=== PATIENT | male | born 1960 | race Caucasian/White ===

== ENCOUNTER 2017-03-07 12:59 | Inpatient (IN) | payer OTHER ==
[2017-03-07 14:54] VITALS: BMI 33.8
--- NOTE | 2017-03-07 15:12 | HP ---
CIWA Score - CIWA Score Nausea/Vomitin Muscle Tremors: 3 Anxiety: 3 Agitation: 3 Paroxysmal Sweats: 1-Minimal Palms Moist Orientation: 0-Oriented Tacttile Disturbances: 1-Very Mild Itch/Numbness Auditory Disturbances: 1-Very Mild Visual Disturbances: 0-None Headache: 2-Mild CIWA-Ar Total Score: 17 Admission ROS BHS - HPI Chief Complaint: I NEED HELP TO STOP USING XANAX AND MARIJUANA Allergies/Adverse Reactions: Allergies Allergy/AdvReac Type Severity Reaction Status Date / Time No Known Drug Allergies Allergy Verified 03/07/17 15:00 History of Present Illness: THIS 56 YEARS OLD MALE WITH XANAX AND MARIJUANA DEPENDENCE,SEEKING HELP TO STOP USING DRUGS,LAST TREATMENT AT [facility] 2011 OLD CVA WITH RIGHT SIDE HEMIPAREIS AT [facility] IN 2012,AMBULATION WITH CANE SINCE THEN HTN HYPERCHOLESTEROLEMIA TYPE 2 DM INSOMNIA - Ebola screening Have you traveled outside of the country in the last 21 days: No Have you had contact with anyone from an Ebola affected area: No Have you been sick,other than usual withdrawal symptoms: No Do you have a fever: No - Review of Systems Constitutional: Loss of Appetite, Malaise, Night Sweats, Changes in sleep, Weakness EENT: reports: Tearing, Nose Congestion Cardiac: reports: No Symptoms Reported GI: reports: Nausea, Vomiting, Abdominal cramping : reports: No Symptoms Reported Musculoskeletal: reports: Back Pain, Muscle Pain Integumentary: reports: Dryness Endocrine: reports: No Symptoms Reported Hematology: reports: No Symptoms Reported Psychiatric: reports: No Sypmtoms Reported, Judgement Intact, Mood/Affect Appropiate, Orientated x3, Anxious, Depressed, other (INSOMNIA) Patient History - Patient Medical History Hx Anemia: No Hx Asthma: No Hx Chronic Obstructive Pulmonary Disease (COPD): No Hx Cancer: No Hx Cardiac Disorders: No Hx Congestive Heart Failure: No Hx Hypertension: Yes Hx Hypercholesterolemia: Yes Hx Pacemaker: No HX Cerebrovascular Accident: Yes (Apr 01, 2013, R hemiparesis) Hx Seizures: No Hx Dementia: No Hx Diabetes: Yes (BORDERLINE NOT ON ANY MEDS) Hx Gastrointestinal Disorders: No Hx Liver Disease: No Hx Genitourinary Disorders: No Hx Sexually Transmitted Disorders: No Hx Renal Disease (ESRD): No Hx Thyroid Disease: No Hx Human Immunodeficiency Virus (HIV): No (NEVER BEEN TESTED,DID NOT WANT TO HAVE A TEST) Hx Hepatitis C: No Hx Depression: No Hx Suicide Attempt: No Hx Bipolar Disorder: Yes (on medication) Hx Schizophrenia: No Other Medical History: NO SUICIDAL,NO HOMICIDAL - Patient Surgical History Past Surgical History: Yes Hx Neurologic Surgery: No Hx Cataract Extraction: No Hx Cardiac Surgery: No Hx Lung Surgery: No Hx Breast Surgery: No Hx Breast Biopsy: No Hx Abdominal Surgery: No Hx Appendectomy: No Hx Cholecystectomy: Yes Hx Genitourinary Surgery: Yes (shockwave lithotripsy LEFT) Hx Section: No Hx Orthopedic Surgery: No Hx Hysterectomy: No Other Surgical History: removsal of kidney stones Anesthesia Reaction: No - PPD History Previous Implant?: Yes Documented Results: Negative w/o proof Implanted On Prior [facility] Admission?: Yes Date: 03/22/12 PPD to be Administered?: Yes - Smoking Cessation Smoking history: Former smoker Have you smoked in the past 12 months: No If you are a former smoker, when did you quit?: 04/11/2013 Cigars Per Day: 0 Initiated information on smoking cessation: Yes 'Breaking Loose' booklet given: 03/07/17 - Substance & Tx. History Hx Alcohol Use: No Hx Substance Use: Yes Substance Use Type: None, Marijuana, Tranquilizers - Substances Abused Alprazolam (Xanax) Route: Oral Frequency: Daily Amount used: 6 MGS Age of first use: 52 Date of Last Use: 03/06/17 Marijuana/Hashish Route: Smoking Frequency: 3-6 times per week Amount used: 10$ Age of first use: 33 Date of Last Use: 03/06/17 Family Disease History - Family Disease History Family History: Denies Admission Physical Exam [facility] - Vital Signs Vital Signs: Vital Signs - 24 hr 03/07/17 14:52 Temperature 97.6 F Pulse Rate 94 H Respiratory 20 Rate Blood Pressure 142/94 - Physical General Appearance: Yes: Moderate Distress, Tremorous, Irritable, Sweating, Anxious HEENTM: Yes: Normal ENT Inspection, ALIVIA, Pharynx Normal Respiratory: Yes: Lungs Clear, Normal Breath Sounds, No Respiratory Distress Neck: Yes: Within Normal Limits, Supple, Trachea in good position Breast: Yes: Breast Exam Deferred Cardiology: Yes: Within Normal Limits, Regular Rhythm, Regular Rate, S1, S2 Abdominal: Yes: Within Normal Limits, Normal Bowel Sounds, Non Tender, Flat, Soft Genitourinary: Yes: Within Normal Limits Musculoskeletal: Yes: Back pain, Muscle Pain Extremities: Yes: Tremors 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 NML intact (RIGHT HEMIPARESIS POST CVA), Fully Oriented, Alert Integumentary: Yes: Dry Lymphatic: Yes: Within Normal Limits - Diagnostic (1) Uncomplicated sedative, hypnotic or anxiolytic withdrawal Current Visit: Yes Status: Acute (2) Essential hypertension Current Visit: No Status: Active (3) Hypercholesterolemia Current Visit: No Status: Active (4) Bipolar disorder Current Visit: No Status: Active (5) DM Diabetes mellitus type 2 Current Visit: No Status: Active (6) Hemiparesis due to old cerebrovascular accident Current Visit: Yes Status: Acute (7) Use of cane as ambulatory aid Current Visit: Yes Status: Acute Cleared for Admission [facility] - Detox or Rehab [facility] Level of Care: Medically Managed Detox Regimen/Protocol: Librium [facility] Breath Alcohol Content Breath Alcohol Content: 0 Urine Drug Screen - Results Drug Screen Negative: No Urine Drug Screen Results: THC-Marijuana, BZO-Benzodiazepines, TCA-Tricyclic Antidepress
[2017-03-07] MEDS ORDERED: diazePAM 5 MG TABLET PO ONE (15:59)
[2017-03-07] MEDS ORDERED: MENTHOL/PHENOL 1 EACH UD MM PRN (15:59)
[2017-03-07] MEDS ORDERED: MAGNESIUM HYDROX 2400MG/30ML ORAL SUSPENSION 30 ML CUP PO PRN (15:59)
[2017-03-07] MEDS ORDERED: P-EPHED 60MG/TRIPROLIDI 2.5MG TABLET PO PRN (15:59)
[2017-03-07] MEDS ORDERED: MAG HYDROX/AL HYDROX/SIMETH 30 ML UNIT-DOSE CUP PO PRN (15:59)
[2017-03-07] MEDS ORDERED: MAGNESIUM CITRATE 300 ML BOTTLE PO PRN (15:59)
[2017-03-07] MEDS ORDERED: guaiFENesin/D-METHORPHAN HB 10 ML UNIT-DOSE CUPS PO PRN (15:59)
[2017-03-07] MEDS ORDERED: LOPERAMIDE HCL 2 MG CAPSULE PO PRN (15:59)
[2017-03-07] MEDS: ACETAMINOPHEN 325 MG TABLET (FP) PO PRN (17:42)
[2017-03-07] MEDS: diazePAM 5 MG TABLET PO SCH ×2 (17:46→22:05)
[2017-03-07] MEDS: IBUPROFEN 400 MG TABLET (FP) PO PRN (19:13)
[2017-03-07 19:14] LABS: URINE APPEARANCE CLEAR; URINE BILIRUBIN NEGATIVE (NEGATIVE); URINE BLOOD NEGATIVE (NEGATIVE); URINE COLOR YELLOW; URINE GLUCOSE (UA) NEGATIVE (NEGATIVE); URINE KETONE NEGATIVE (NEGATIVE); URINE NITRITE NEGATIVE (NEGATIVE); URINE PROTEIN NEGATIVE (NEGATIVE); URINE UROBILINOGEN NEGATIVE mg/dL (0.2-1.0)
[2017-03-07 21:10] LABS: URINE LEUK ESTERASE Negative (NEGATIVE)
[2017-03-07] MEDS: THIAMINE HCL 100 MG TABLET (FP) PO SCH (22:05)
[2017-03-07] MEDS: ATORVASTATIN CA 40 MG TABLET (FP) PO SCH (22:05)
[2017-03-08] MEDS: diazePAM 5 MG TABLET PO PRN ×3 (00:48→16:38)
[2017-03-08] MEDS: hydrOXYzine PAMOATE 25 MG CAPSULE (FP) PO PRN (00:48)
[2017-03-08] MEDS: diazePAM 5 MG TABLET PO SCH ×3 (05:21→22:05)
--- NOTE | 2017-03-08 07:15 | CONSULT ---
[facility] Psychiatric Consult - Data Date of interview: 03/08/17 Identifying data: Mr Haynes is a 56 years old [place] male, father of 7 children, unemployed supported by family and domiciled living with Substance Abuse History: Reports history of xanax and marijuana use, He started using marijuana at age 33 and xanax at age 52, consumes $10 worth of marijuana 3-6 times weekly and 6 mg of xanax daily. Last smoked marijuana and used xanax on 03/06/17 Medical History: Significant for hypertension, hyperlipidemia, type 2 diabetes mellitusand a history of old cva with right hemiparesy and and shockwave lithotripsy. Psychiatric History: Reports that he started receiving psychiatric treatment for depression 4 years ago when he attended [facility]. Claims that he was prescribed Trazadone at the time. Then he was prescibed Pamelor up to 75 mg po BID by his neurologist whom he stopped seeing a year ago. So he stopped taking medication a year ago. At present, he is prescribed Trazadone 100 mg po HS for insomnia and recently Prozac 25 mg po daily for depression by his primary physician. Claims that he does not take Prozac because of bad things they say about it on TV. Denies previous psychiatric hospitalization or suicidal ideations. At present, reports feeling depressed and sleeping poorly Physical/Sexual Abuse/Trauma History: Denies history of verbal, physical or sexual abuse. Additional Comment: Denies criminal history Mental Status Exam - Mental Status Exam Alert and Oriented to: Time, Place, Person Cognitive Function: Fair Patient Appearance: Well Groomed Mood: Depressed, Euthymic Affect: Constricted Patient Behavior: Cooperative Speech Pattern: Clear Voice Loudness: Normal Thought Process: Intact, Goal Oriented Thought Disorder: Not Present Hallucinations: Denies Suicidal Ideation: Denies Homicidal Ideation: Denies Insight/Judgement: Fair Sleep: Poorly Appetite: Fair Muscle strength/Tone: Normal Gait/Station: Normal Psychiatric Findings - Problem List ([place] 1, 2,3) (1) Sedative hypnotic or anxiolytic dependence Current Visit: Yes Status: Acute (2) Cannabis dependence Current Visit: Yes Status: Acute (3) Depressive disorder Current Visit: Yes Status: Acute (4) Substance induced mood disorder Current Visit: Yes Status: Acute (5) Substance-induced sleep disorder Current Visit: Yes Status: Acute (6) Hemiparesis due to old cerebrovascular accident Current Visit: Yes Status: Acute (7) Use of cane as ambulatory aid Current Visit: Yes Status: Acute (8) DM Diabetes mellitus type 2 Current Visit: No Status: Active (9) Essential hypertension Current Visit: No Status: Active (10) Hypercholesterolemia Current Visit: No Status: Active - Initial Treatment Plan Initial Treatment Plan: 1) Start Benadryl 50 mg po HS prn for insomnia and Doxepin 50 mg po HS. Benefits vs Risks of medication discussed with patient and he agreed to try it. 2) Monitor progress
[2017-03-08] MEDS: ASPIRIN 81 MG CHEWABLE TABLETS PO SCH (10:05)
[2017-03-08] MEDS: PRENATAL VITAMINS W/ FOLIC ACID TABLET (FP) PO SCH (10:05)
[2017-03-08] MEDS: NEBIVOLOL 10 MG TABLET (FP) PO SCH (10:05)
[2017-03-08] MEDS: IBUPROFEN 400 MG TABLET (FP) PO PRN (10:07)
[2017-03-08 11:25] LABS: MCH 27.9 pg (25.7-33.7); MCHC 32.7 g/dl (32.0-35.9); MEAN CELL VOLUME 85.5 fl (80-96); MEAN PLT VOLUME 10.2 fl (7.5-11.1); PLATELET COUNT 241 K/MM3 (134-434); RDW 14.6 % (11.9-15.9); WHITE BLOOD COUNT 6.2 K/mm3 (4.0-10.0)
[2017-03-08 11:38] LABS: ANION GAP 11 (8-16); CALCIUM 8.8 mg/dL (8.5-10.1); CO2 28 mmol/L (21-32); CREATININE 0.8 mg/dL (0.7-1.3); GLUCOSE,RANDOM 120 mg/dL (74-106); SGOT/AST 13 U/L (15-37); SGPT/ALT 20 U/L (12-78)
[2017-03-08 11:40] LABS: ALK PHOS 83 U/L (45-117); BILIRUBIN,TOTAL 0.7 mg/dL (0.2-1.0); TOT PROT 7.7 g/dl (6.4-8.2)
[2017-03-08] MEDS ORDERED: FLU VACCINE QUAD 60 MCG/0.5 ML (MDV 17-18) IM ONE (12:00)
--- NOTE | 2017-03-08 12:21 | PN ---
[facility] CIWA - CIWA Score Nausea/Vomitin-Int. Nausea w/Dry Heave Muscle Tremors: 4-Moderate,w/Arms Extend Anxiety: 4-Mod. Anxious/Guarded Agitation: 4-Moderately Restless Paroxysmal Sweats: 3 Orientation: 0-Oriented Tacttile Disturbances: 1-Very Mild Itch/Numbness Auditory Disturbances: 0-None Visual Disturbances: 0-None Headache: 1-Very Mild CIWA-Ar Total Score: 21 S Progress Note (SOAP) Subjective: Sweating, tremor, nausea, chills, poor appetite, interrupted sleep. Patient requesting muscle relaxant due to spasm from right hemiparesis secondary to CVA ~ 3 years ago. Objective: 03/08/17 12:17 Last Vital Signs Temp Pulse Resp BP Pulse Ox 97.6 F 81 20 147/72 03/08/17 10:21 03/08/17 10:21 03/08/17 10:21 03/08/17 10:21 Laboratory Tests 03/07/17 03/07/17 03/08/17 15:34 18:55 05:24 WBC RBC Hgb Hct MCV MCH MCHC RDW Plt Count MPV Sodium Potassium Chloride Carbon Dioxide Anion Gap BUN Creatinine Creat Clearance w eGFR POC Glucometer 127 111 Random Glucose Calcium Total Bilirubin AST ALT Alkaline Phosphatase Total Protein Albumin Urine Color Yellow Urine Appearance Clear Urine pH 6.0 Ur Specific [place] 1.010 Urine Protein Negative Urine Glucose (UA) Negative Urine Ketones Negative Urine Blood Negative Urine Nitrite Negative Urine Bilirubin Negative Urine Urobilinogen Negative Ur Leukocyte Esterase Negative RPR Titer 03/08/17 03/08/17 03/08/17 07:40 07:40 07:40 WBC 6.2 RBC 5.40 D Hgb 15.1 D Hct 46.1 D MCV 85.5 MCH 27.9 MCHC 32.7 RDW 14.6 Plt Count 241 D MPV 10.2 D Sodium 139 Potassium 3.8 Chloride 100 Carbon Dioxide 28 Anion Gap 11 BUN 8 Creatinine 0.8 Creat Clearance w eGFR > 60 POC Glucometer Random Glucose 120 H Calcium 8.8 Total Bilirubin 0.7 D AST 13 L D ALT 20 Alkaline Phosphatase 83 Total Protein 7.7 Albumin 4.0 D Urine Color Urine Appearance Urine pH Ur Specific [place] Urine Protein Urine Glucose (UA) Urine Ketones Urine Blood Urine Nitrite Urine Bilirubin Urine Urobilinogen Ur Leukocyte Esterase RPR Titer Nonreactive Labs noted: serum glucose 120mg/dl Assessment: 03/08/17 12:19 Withdrawal symptoms Noted with hyperglycemia Plan: Continue detox Encouraged to drink lots of water (patient stated the water taste like chloride , nurses made aware) Flexeril 10mg PO TID PRN for muscle spasm Hyperglycemia secondary to prediabetes: start finger stick glucose ac meal with sliding scale insulin novolog coverage. Consider initiating oral antidiabetic medication if warranted.
[2017-03-08] MEDS: INSULIN SLIDING SCALE (NOVOLOG) 1 VIAL SQ SCH ×2 (13:20→16:29)
--- NOTE | 2017-03-08 15:40 | EKG ---
Test Reason : Blood Pressure : / mmHG Vent. Rate : 083 BPM Atrial Rate : 083 BPM P-R Int : 184 ms QRS Dur : 084 ms QT Int : 370 ms P-R-T Axes : 075 020 036 degrees QTc Int : 434 ms NORMAL SINUS RHYTHM POSSIBLE LEFT ATRIAL ENLARGEMENT BORDERLINE ECG WHEN COMPARED WITH ECG OF 24-JUN-2015 02:44, NONSPECIFIC T WAVE ABNORMALITY NO LONGER EVIDENT IN LATERAL LEADS BASELINE ARTIFACT REPEAT EKG IF CLINICALLY INDICATED Confirmed by MARCOS JURADO MD ([id number]) on 03/08/2017 3:39:49 PM Referred By: Confirmed By:MARCOS JURADO MD
[2017-03-08] MEDS: DOXEPIN HCL 50 MG CAPSULE PO SCH (22:04)
[2017-03-08] MEDS: THIAMINE HCL 100 MG TABLET (FP) PO SCH (22:04)
[2017-03-08] MEDS: ATORVASTATIN CA 40 MG TABLET (FP) PO SCH (22:05)
[2017-03-08] MEDS: CYCLOBENZAPRINE HCL 10 MG TABLET (FP) PO PRN (22:06)
[2017-03-08] MEDS: diphenhydrAMINE HCL 25 MG CAPSULE (FP) PO PRN (22:06)
[2017-03-09] MEDS: diazePAM 5 MG TABLET PO PRN ×2 (06:37→13:28)
[2017-03-09] MEDS: CYCLOBENZAPRINE HCL 10 MG TABLET (FP) PO PRN ×2 (06:38→22:07)
[2017-03-09] MEDS: INSULIN SLIDING SCALE (NOVOLOG) 1 VIAL SQ SCH ×3 (06:39→16:25)
--- NOTE | 2017-03-09 09:46 | PN ---
[facility] CIWA - CIWA Score Nausea/Vomitin-No Nausea/No Vomiting Muscle Tremors: 4-Moderate,w/Arms Extend Anxiety: 4-Mod. Anxious/Guarded Agitation: 4-Moderately Restless Paroxysmal Sweats: 1-Minimal Palms Moist Orientation: 0-Oriented Tacttile Disturbances: 3-Moderate Itch/Numb/Burn Auditory Disturbances: 0-None Visual Disturbances: 0-None Headache: 0-None Present CIWA-Ar Total Score: 16 S Progress Note (SOAP) Subjective: ANXIETY,TREMORS,SWEATS,INTERMITTENT SLEEP. Objective: 03/09/17 09:45 Vital Signs Temperature 96.8 F L 03/09/17 08:57 Pulse Rate 82 03/09/17 08:57 Respiratory Rate 18 03/09/17 08:57 Blood Pressure 140/78 03/09/17 08:57 O2 Sat by Pulse Oximetry (%) Laboratory Last Values WBC 6.2 K/mm3 (4.0-10.0) 03/08/17 07:40 RBC 5.40 M/mm3 (4.00-5.60) D 03/08/17 07:40 Hgb 15.1 GM/dL (11.7-16.9) D 03/08/17 07:40 Hct 46.1 % (35.4-49) D 03/08/17 07:40 MCV 85.5 fl (80-96) 03/08/17 07:40 MCH 27.9 pg (25.7-33.7) 03/08/17 07:40 MCHC 32.7 g/dl (32.0-35.9) 03/08/17 07:40 RDW 14.6 % (11.9-15.9) 03/08/17 07:40 Plt Count 241 K/MM3 (134-434) D 03/08/17 07:40 MPV 10.2 fl (7.5-11.1) D 03/08/17 07:40 Sodium 139 mmol/L (136-145) 03/08/17 07:40 Potassium 3.8 mmol/L (3.5-5.1) 03/08/17 07:40 Chloride 100 mmol/L (98-107) 03/08/17 07:40 Carbon Dioxide 28 mmol/L (21-32) 03/08/17 07:40 Anion Gap 11 (8-16) 03/08/17 07:40 BUN 8 mg/dL (7-18) 03/08/17 07:40 Creatinine 0.8 mg/dL (0.7-1.3) 03/08/17 07:40 Creat Clearance w eGFR > 60 (>60) 03/08/17 07:40 POC Glucometer 123 UNITS (80-120) 03/09/17 05:32 Random Glucose 120 mg/dL (74-106) H 03/08/17 07:40 Calcium 8.8 mg/dL (8.5-10.1) 03/08/17 07:40 Total Bilirubin 0.7 mg/dL (0.2-1.0) D 03/08/17 07:40 AST 13 U/L (15-37) L D 03/08/17 07:40 ALT 20 U/L (12-78) 03/08/17 07:40 Alkaline Phosphatase 83 U/L (45-117) 03/08/17 07:40 Total Protein 7.7 g/dl (6.4-8.2) 03/08/17 07:40 Albumin 4.0 g/dl (3.4-5.0) D 03/08/17 07:40 Urine Color Yellow 03/07/17 18:55 Urine Appearance Clear 03/07/17 18:55 Urine pH 6.0 (5.0-8.0) 03/07/17 18:55 Ur Specific [place] 1.010 (1.001-1.035) 03/07/17 18:55 Urine Protein Negative (NEGATIVE) 03/07/17 18:55 Urine Glucose (UA) Negative (NEGATIVE) 03/07/17 18:55 Urine Ketones Negative (NEGATIVE) 03/07/17 18:55 Urine Blood Negative (NEGATIVE) 03/07/17 18:55 Urine Nitrite Negative (NEGATIVE) 03/07/17 18:55 Urine Bilirubin Negative (NEGATIVE) 03/07/17 18:55 Urine Urobilinogen Negative mg/dL (0.2-1.0) 03/07/17 18:55 Ur Leukocyte Esterase Negative (NEGATIVE) 03/07/17 18:55 RPR Titer Nonreactive (NONREACTIVE) 03/08/17 07:40 Assessment: 03/09/17 09:45 WITHDRAWAL SX Plan: WITHDRAWAL SX
[2017-03-09] MEDS: ASPIRIN 81 MG CHEWABLE TABLETS PO SCH (10:01)
[2017-03-09] MEDS: diazePAM 5 MG TABLET PO SCH ×2 (10:01→22:06)
[2017-03-09] MEDS: NEBIVOLOL 10 MG TABLET (FP) PO SCH (10:02)
[2017-03-09] MEDS: PRENATAL VITAMINS W/ FOLIC ACID TABLET (FP) PO SCH (10:02)
[2017-03-09] MEDS: ACETAMINOPHEN 325 MG TABLET (FP) PO PRN ×2 (10:02→19:26)
[2017-03-09] MEDS: hydrOXYzine PAMOATE 25 MG CAPSULE (FP) PO PRN ×2 (17:07→23:53)
[2017-03-09] MEDS: THIAMINE HCL 100 MG TABLET (FP) PO SCH (22:06)
[2017-03-09] MEDS: DOXEPIN HCL 50 MG CAPSULE PO SCH (22:07)
[2017-03-09] MEDS: ATORVASTATIN CA 40 MG TABLET (FP) PO SCH (22:07)
[2017-03-09] MEDS: diphenhydrAMINE HCL 25 MG CAPSULE (FP) PO PRN (22:09)
[2017-03-10] MEDS: diazePAM 5 MG TABLET PO PRN (04:30)
[2017-03-10] MEDS: INSULIN SLIDING SCALE (NOVOLOG) 1 VIAL SQ SCH ×3 (06:31→16:35)
[2017-03-10] MEDS: hydrOXYzine PAMOATE 25 MG CAPSULE (FP) PO PRN ×2 (06:37→18:15)
[2017-03-10] MEDS: CYCLOBENZAPRINE HCL 10 MG TABLET (FP) PO PRN ×2 (06:37→22:13)
[2017-03-10] MEDS: ASPIRIN 81 MG CHEWABLE TABLETS PO SCH (10:13)
[2017-03-10] MEDS: PRENATAL VITAMINS W/ FOLIC ACID TABLET (FP) PO SCH (10:13)
[2017-03-10] MEDS: NEBIVOLOL 10 MG TABLET (FP) PO SCH (10:13)
[2017-03-10] MEDS: diazePAM 5 MG TABLET PO SCH ×2 (10:13→22:12)
--- NOTE | 2017-03-10 10:20 | PN ---
[facility] Progress Note (SOAP) Subjective: HIGH ANXIETY,IRRITABILITY,C/O SLEEPLESSNESS X 3 DAYS. WANTS SLEEPING AID BESIDES WHAT HE IS CURRENTLY TAKING. Objective: 03/10/17 10:19 Vital Signs 03/10/17 03/10/17 03/10/17 03:30 06:03 09:07 Temperature 97.3 F L 97.6 F Pulse Rate 73 91 H Respiratory 18 18 18 Rate Blood Pressure 131/76 158/86 Laboratory Last Values WBC 6.2 K/mm3 (4.0-10.0) 03/08/17 07:40 RBC 5.40 M/mm3 (4.00-5.60) D 03/08/17 07:40 Hgb 15.1 GM/dL (11.7-16.9) D 03/08/17 07:40 Hct 46.1 % (35.4-49) D 03/08/17 07:40 MCV 85.5 fl (80-96) 03/08/17 07:40 MCH 27.9 pg (25.7-33.7) 03/08/17 07:40 MCHC 32.7 g/dl (32.0-35.9) 03/08/17 07:40 RDW 14.6 % (11.9-15.9) 03/08/17 07:40 Plt Count 241 K/MM3 (134-434) D 03/08/17 07:40 MPV 10.2 fl (7.5-11.1) D 03/08/17 07:40 Sodium 139 mmol/L (136-145) 03/08/17 07:40 Potassium 3.8 mmol/L (3.5-5.1) 03/08/17 07:40 Chloride 100 mmol/L (98-107) 03/08/17 07:40 Carbon Dioxide 28 mmol/L (21-32) 03/08/17 07:40 Anion Gap 11 (8-16) 03/08/17 07:40 BUN 8 mg/dL (7-18) 03/08/17 07:40 Creatinine 0.8 mg/dL (0.7-1.3) 03/08/17 07:40 Creat Clearance w eGFR > 60 (>60) 03/08/17 07:40 POC Glucometer 121 UNITS (80-120) 03/10/17 04:32 Random Glucose 120 mg/dL (74-106) H 03/08/17 07:40 Calcium 8.8 mg/dL (8.5-10.1) 03/08/17 07:40 Total Bilirubin 0.7 mg/dL (0.2-1.0) D 03/08/17 07:40 AST 13 U/L (15-37) L D 03/08/17 07:40 ALT 20 U/L (12-78) 03/08/17 07:40 Alkaline Phosphatase 83 U/L (45-117) 03/08/17 07:40 Total Protein 7.7 g/dl (6.4-8.2) 03/08/17 07:40 Albumin 4.0 g/dl (3.4-5.0) D 03/08/17 07:40 Urine Color Yellow 03/07/17 18:55 Urine Appearance Clear 03/07/17 18:55 Urine pH 6.0 (5.0-8.0) 03/07/17 18:55 Ur Specific [place] 1.010 (1.001-1.035) 03/07/17 18:55 Urine Protein Negative (NEGATIVE) 03/07/17 18:55 Urine Glucose (UA) Negative (NEGATIVE) 03/07/17 18:55 Urine Ketones Negative (NEGATIVE) 03/07/17 18:55 Urine Blood Negative (NEGATIVE) 03/07/17 18:55 Urine Nitrite Negative (NEGATIVE) 03/07/17 18:55 Urine Bilirubin Negative (NEGATIVE) 03/07/17 18:55 Urine Urobilinogen Negative mg/dL (0.2-1.0) 03/07/17 18:55 Ur Leukocyte Esterase Negative (NEGATIVE) 03/07/17 18:55 RPR Titer Nonreactive (NONREACTIVE) 03/08/17 07:40 Assessment: 03/10/17 10:19 WITHDRAWAL SX Plan: CONTINUE DETOX PSYCH RE-EVALUATION RE:INSOMNIA.
[2017-03-10] MEDS: IBUPROFEN 400 MG TABLET (FP) PO PRN (11:32)
--- NOTE | 2017-03-10 11:51 | PN ---
Psychiatric Progress Note Vital Signs: Vital Signs Period Temp Pulse Resp BP Sys/Arita Pulse Ox Last 24 Hr 97.3 F-98.4 F 70-91 18-18 131-158/76-86 Date of Session: 03/10/17 Chief Complaint:: " I want ambien at night." HPI: Day 4 of detoxification treatment for xanax and marihuana dependence.Uneventful hospital course except for recurrent complaints of insomnia + requests for benzodiazepines or zolpidem. ROS: Patient is ambulatory (with cane).Always visible in open areas of unit.Alert and fully oriented. Current Medications: Active Medications Generic Name Dose Route Start Last Admin Trade Name Freq PRN Reason Stop Dose Admin Acetaminophen 650 mg 03/07/17 15:59 03/09/17 19:26 Tylenol - PO 650 mg Q4H PRN Administration FEVER OR PAIN Al Hydroxide/Mg Hydroxide 30 ml 03/07/17 15:59 03/07/17 19:14 Mylanta Oral Suspension - PO 30 ml Q6H PRN Administration DYSPEPSIA Aspirin 81 mg 03/08/17 10:00 03/10/17 10:13 Asa - PO 81 mg DAILY STEFANIA Administration Atorvastatin Calcium 40 mg 03/07/17 22:00 03/09/17 22:07 Lipitor - PO 40 mg HS STEFANIA Administration Cyclobenzaprine HCl 10 mg 03/08/17 12:11 03/10/17 06:37 Flexeril - PO 10 mg TID PRN Administration MUSCLE SPASMS Diazepam 5 mg 03/09/17 10:00 03/10/17 10:13 Valium - PO 03/10/17 22:01 5 mg BID STEFANIA Administration Diazepam 5 mg 03/11/17 10:00 Valium - PO 03/11/17 10:01 DAILY STEFANIA Diazepam 10 mg 03/07/17 15:59 03/10/17 04:30 Valium - PO 03/10/17 15:58 10 mg Q4H PRN Administration WITHDRAWAL(CONT SUBST) Diphenhydramine HCl 50 mg 03/08/17 09:45 03/09/17 22:09 Benadryl - PO 50 mg HS PRN Administration INSOMNIA Doxepin HCl 50 mg 03/08/17 22:00 03/09/17 22:07 Sinequan - PO 50 mg HS STEFANIA Administration Eucalyptus/Menthol/Phenol/Sorbitol 1 each 03/07/17 15:59 Cepastat Lozenge - MM Q4H PRN SORE THROAT Guaifenesin 10 ml 03/07/17 15:59 Robitussin Dm - PO Q6H PRN COUGH Hydroxyzine Pamoate 25 mg 03/07/17 15:59 03/10/17 06:37 Vistaril - PO 25 mg Q4H PRN Administration AGITATION Ibuprofen 400 mg 03/07/17 15:59 03/10/17 11:32 Motrin - PO 400 mg Q6H PRN Administration SEVERE PAIN Insulin Aspart 1 vial 03/08/17 12:30 03/10/17 11:30 Novolog Vial Sliding Scale - SQ Not Given TIDAC [facility] Protocol Loperamide HCl 4 mg 03/07/17 15:59 Imodium - PO Q6H PRN DIARRHEA Magnesium Citrate 300 ml 03/07/17 15:59 Citroma - PO Q48H PRN CONSTIPATION Magnesium Hydroxide 30 ml 03/07/17 15:59 Milk Of Magnesia - PO DAILY PRN CONSTIPATION Nebivolol 20 mg 03/08/17 10:00 03/10/17 10:13 Bystolic - PO 20 mg DAILY STEFANIA Administration Multivit/Folic Acid/Iron 1 tab 03/08/17 10:00 03/10/17 10:13 Vitamins (Sjr) - PO 1 tab DAILY STEFANIA Administration Pseudoephedrine/Triprolidine 1 combo 03/07/17 15:59 Actifed - PO TID PRN NASAL CONGESTION Thiamine HCl 100 mg 03/07/17 22:00 03/09/17 22:06 Vitamin B1 - PO 100 mg HS STEFANIA Administration Medication(s) Change(s): Yes.Doxepin is discontinued.Switch made to trazodone 100 mg po hs.Discussed with the patient.Made aware of potential for priapism.NO ambien.Mr Haynes is agreable to this careplan. Current Side Effect: No Lab tests ordered: No Lab tests reviewed: Yes Provider note:: Asked to re-evaluate this patient because of persistent complaints of insomnia and numerous requests for additional medications.Chart reviewed.Dr Fernandez's note : appreciated.Mr Haynes has been seen by this play writer on two previous occasions and given ample explanations about the treatment plan,including valium protocol and current prescription for doxepin at bedtime.Mr Haynes is invested in the pursuit of more medications (now he requests that zolpidem be added to his regimen).Perseverative and inappropriate as evidenced by splitting behavior (approaching a particular nurse with the task of " advocating " on his behalf for an order of ambien at bedtime).Patient needs firm redirections.Educated about boundaries.Made aware of the shortcomings of ambien (parasomnias,sedation,habit-forming issues).Review of recent pharmacy claims : refill for trazodone 100 mg/hs on 03/03/17 at [facility].Patient is informed of the strategy to resume trazodone in this hospital course.Stable mental status. Total face to face time:: 25 Mental Status Exam - Mental Status Exam Alert and Oriented to: Time Cognitive Function: Grossly Intact Patient Appearance: Well Groomed (unshaven) Mood: Nervous, Anxious Affect: Mood Congruent, Constricted Patient Behavior: Fatigued, Cooperative Speech Pattern: Clear Voice Loudness: Normal Thought Process: Goal Oriented Thought Disorder: Not Present Hallucinations: Denies Suicidal Ideation: Denies Homicidal Ideation: Denies Insight/Judgement: Poor Sleep: Poorly, Difficulty falling asleep Appetite: Fair Gait/Station: Other (ambulates with a cane) Psychiatric Treatment Plan - Problem List (1) Insomnia Current Visit: Yes (2) Uncomplicated sedative, hypnotic or anxiolytic withdrawal Current Visit: Yes (3) Cannabis dependence Current Visit: Yes (4) Substance induced mood disorder Current Visit: Yes (5) Depressive disorder Current Visit: Yes
[2017-03-10] MEDS ORDERED: traZODone HCL 100 MG TABLET (FP) PO SCH (22:00)
[2017-03-10] MEDS: ATORVASTATIN CA 40 MG TABLET (FP) PO SCH (22:12)
[2017-03-10] MEDS: THIAMINE HCL 100 MG TABLET (FP) PO SCH (22:12)
[2017-03-11] MEDS: hydrOXYzine PAMOATE 25 MG CAPSULE (FP) PO PRN (05:08)
[2017-03-11] MEDS: INSULIN SLIDING SCALE (NOVOLOG) 1 VIAL SQ SCH ×2 (07:23→11:10)
[2017-03-11] MEDS: CYCLOBENZAPRINE HCL 10 MG TABLET (FP) PO PRN (07:45)
--- NOTE | 2017-03-11 09:02 | DS ---
[facility] Detox Discharge Summary Admission Date: 03/07/17 Discharge Date: 03/11/17 - History Present History: Cannabis Dependence, Sedative Dependence Additional Comments: DETOX COMPLETED. ALERT O X 3. PT TO FOLLOW UP WITH PMD FOR MEDICAL MANAGEMENT OF COMORBID CONDITION. Pertinent Past History: HTN TYPE 2 DM HYPERCHOLESTEROLEMIA SEIZURE S/P STROKE RIGHT HEMIPARESIS USE OF CANE AMBULATORY AID - Physical Exam Results Vital Signs: Vital Signs Temperature 98.1 F 03/11/17 05:47 Pulse Rate 77 03/11/17 05:47 Respiratory Rate 18 03/11/17 05:47 Blood Pressure 152/85 03/11/17 05:47 O2 Sat by Pulse Oximetry (%) Pertinent Admission Physical Exam Findings: WITHDRAWAL SX Laboratory Last Values WBC 6.2 K/mm3 (4.0-10.0) 03/08/17 07:40 RBC 5.40 M/mm3 (4.00-5.60) D 03/08/17 07:40 Hgb 15.1 GM/dL (11.7-16.9) D 03/08/17 07:40 Hct 46.1 % (35.4-49) D 03/08/17 07:40 MCV 85.5 fl (80-96) 03/08/17 07:40 MCH 27.9 pg (25.7-33.7) 03/08/17 07:40 MCHC 32.7 g/dl (32.0-35.9) 03/08/17 07:40 RDW 14.6 % (11.9-15.9) 03/08/17 07:40 Plt Count 241 K/MM3 (134-434) D 03/08/17 07:40 MPV 10.2 fl (7.5-11.1) D 03/08/17 07:40 Sodium 139 mmol/L (136-145) 03/08/17 07:40 Potassium 3.8 mmol/L (3.5-5.1) 03/08/17 07:40 Chloride 100 mmol/L (98-107) 03/08/17 07:40 Carbon Dioxide 28 mmol/L (21-32) 03/08/17 07:40 Anion Gap 11 (8-16) 03/08/17 07:40 BUN 8 mg/dL (7-18) 03/08/17 07:40 Creatinine 0.8 mg/dL (0.7-1.3) 03/08/17 07:40 Creat Clearance w eGFR > 60 (>60) 03/08/17 07:40 POC Glucometer 120 UNITS (80-120) 03/11/17 05:07 Random Glucose 120 mg/dL (74-106) H 03/08/17 07:40 Calcium 8.8 mg/dL (8.5-10.1) 03/08/17 07:40 Total Bilirubin 0.7 mg/dL (0.2-1.0) D 03/08/17 07:40 AST 13 U/L (15-37) L D 03/08/17 07:40 ALT 20 U/L (12-78) 03/08/17 07:40 Alkaline Phosphatase 83 U/L (45-117) 03/08/17 07:40 Total Protein 7.7 g/dl (6.4-8.2) 03/08/17 07:40 Albumin 4.0 g/dl (3.4-5.0) D 03/08/17 07:40 Urine Color Yellow 03/07/17 18:55 Urine Appearance Clear 03/07/17 18:55 Urine pH 6.0 (5.0-8.0) 03/07/17 18:55 Ur Specific [place] 1.010 (1.001-1.035) 03/07/17 18:55 Urine Protein Negative (NEGATIVE) 03/07/17 18:55 Urine Glucose (UA) Negative (NEGATIVE) 03/07/17 18:55 Urine Ketones Negative (NEGATIVE) 03/07/17 18:55 Urine Blood Negative (NEGATIVE) 03/07/17 18:55 Urine Nitrite Negative (NEGATIVE) 03/07/17 18:55 Urine Bilirubin Negative (NEGATIVE) 03/07/17 18:55 Urine Urobilinogen Negative mg/dL (0.2-1.0) 03/07/17 18:55 Ur Leukocyte Esterase Negative (NEGATIVE) 03/07/17 18:55 RPR Titer Nonreactive (NONREACTIVE) 03/08/17 07:40 - Treatment Hospital Course: Detox Protocol Followed, Detoxed Safely, Responded well, Discharged Condition Good, Rehab Referral Accepted Patient has Accepted a Rehab Referral to: [facility] [place] - Medication Discharge Medications: Ambulatory Orders Atorvastatin Ca [Lipitor] 40 mg PO HS 05/08/14 Nebivolol [Bystolic -] 20 mg PO DAILY 05/08/14 Baclofen 20 mg PO DAILY 02/23/16 Nortriptyline HCl [Pamelor -] 75 mg PO BID 02/23/16 Cimetidine [Acid Management Planner] 200 mg PO BID #20 tablet 03/28/16 Aspirin [ASA -] 81 mg PO DAILY 03/07/17 - Diagnosis (1) Uncomplicated sedative, hypnotic or anxiolytic withdrawal Current Visit: Yes Status: Acute (2) Essential hypertension Current Visit: Yes Status: Chronic (3) Hypercholesterolemia Current Visit: Yes Status: Chronic (4) DM Diabetes mellitus type 2 Current Visit: No Status: Chronic (5) Seizure Current Visit: No Status: Suspected (6) Cannabis dependence Current Visit: Yes Status: Acute (7) Hemiparesis due to old cerebrovascular accident Current Visit: Yes Status: Chronic (8) Use of cane as ambulatory aid Current Visit: Yes Status: Chronic - AMA Did Patient Leave Against Medical Advice: No
[2017-03-11] MEDS: PRENATAL VITAMINS W/ FOLIC ACID TABLET (FP) PO SCH (09:17)
[2017-03-11] MEDS: ASPIRIN 81 MG CHEWABLE TABLETS PO SCH (09:17)
[2017-03-11] MEDS: NEBIVOLOL 10 MG TABLET (FP) PO SCH (09:17)
[2017-03-11 09:18] VITALS: BP 172/89; PULSE 91; TEMP 96.4
[2017-03-11] MEDS ORDERED: diazePAM 5 MG TABLET PO SCH (10:00)
[2017-03-11] MEDS ORDERED: BACLOFEN 10 MG TABLET (FP) PO SCH (10:00)
== END 2017-03-11 12:39 | disposition other institution (70) | DRG 776 ==
LOC: YASAS 12:59 → Y3N 15:51
PROVIDERS: ADMIT Internal Medicine; ATTEND Internal Medicine
PROC: HZ2ZZZZ Detoxification Services for Substance Abuse Treatment (ICD-10-PCS; principal; 2017-03-07)
DX: F13.230 Sedative, hypnotic or anxiolytic dependence with withdrawal, uncomplicated (principal); F12.20 Cannabis dependence, uncomplicated; F19.24 Other psychoactive substance dependence with psychoactive substance-induced mood disorder; F19.282 Other psychoactive substance dependence with psychoactive substance-induced sleep disorder; F32.9 Major depressive disorder, single episode, unspecified; F31.9 Bipolar disorder, unspecified; I10 Essential (primary) hypertension; E78.5 Hyperlipidemia, unspecified; E11.65 Type 2 diabetes mellitus with hyperglycemia; I69.351 Hemiplegia and hemiparesis following cerebral infarction affecting right dominant side; G47.00 Insomnia, unspecified; R26.2 Difficulty in walking, not elsewhere classified; Z99.89 Dependence on other enabling machines and devices; Z86.69 Personal history of other diseases of the nervous system and sense organs; Z87.891 Personal history of nicotine dependence
CPT/HCPCS: 36415; 80053; 81003; 85027; 86593; 93005; 93010; J0475

== ENCOUNTER 2017-03-11 12:46 | Inpatient (IN) | payer OTHER ==
--- NOTE | 2017-03-11 13:01 | HP ---
ELISABETH PAYAN Rehab Assess/Revision - Admission History Admitted to Rehab from: [facility] Date of Admission to Rehab: 03/11/17 - Findings Detox History & Physical reviewed: Yes Concur with findings: Yes Comments/Additional Findings: PT COMLETED DETOX ON [facility] TODAY AND INTERESTED TO CONTINUE TO NEXT LEVEL OF CARE- REHAB. ALERT O X 3. NAD.
[2017-03-11] MEDS ORDERED: MAGNESIUM HYDROX 2400MG/30ML ORAL SUSPENSION 30 ML CUP PO PRN (13:08)
[2017-03-11] MEDS ORDERED: NICOTINE POLACRILEX 2 MG GUM BUC PRN (13:08)
[2017-03-11] MEDS ORDERED: LOPERAMIDE HCL 2 MG CAPSULE PO PRN (13:08)
[2017-03-11] MEDS ORDERED: MAGNESIUM CITRATE 300 ML BOTTLE PO PRN (13:08)
[2017-03-11] MEDS ORDERED: guaiFENesin/D-METHORPHAN HB 10 ML UNIT-DOSE CUPS PO PRN (13:08)
[2017-03-11] MEDS ORDERED: IBUPROFEN 400 MG TABLET (FP) PO PRN (13:08)
[2017-03-11] MEDS ORDERED: MENTHOL/PHENOL 1 EACH UD MM PRN (13:08)
[2017-03-11] MEDS ORDERED: P-EPHED 60MG/TRIPROLIDI 2.5MG TABLET PO PRN (13:08)
[2017-03-11] MEDS ORDERED: ACETAMINOPHEN 325 MG TABLET (FP) PO PRN (13:08)
[2017-03-11] MEDS ORDERED: NICOTINE 14 MG/24 HOURS TOPICAL PATCH TD SCH (13:15)
--- NOTE | 2017-03-11 13:30 | HP ---
Psychiatrist Admission - Data Date of interview: 03/11/17 Admission source: [facility] Identifying data: This is the first [facility] admission for this 56 years old [place]ian male, father of 7 children, unemployed, domiciled Medical History: Significant for hypertension, hyperlipidemia, type 2 diabetes mellitus and a history of old cva with right hemiparesy and and shockwave lithotripsy. Psychiatric History: Reports that he started receiving psychiatric treatment for depression 4 years ago when he attended [facility]. Claims that he was prescribed Trazadone at the time. Then he was prescibed Pamelor up to 75 mg po BID by his neurologist whom he stopped seeing a year ago. So he stopped taking medication 6 months ago. At present, he is prescribed Trazadone 100 mg po HS for insomnia and recently Prozac 25 mg po daily for depression by his primary physician. Claims that he does not take Prozac because of bad things they say about it on TV. Denies previous psychiatric hospitalization or suicidal ideations. He was seen by radio script writer recently in detox and was prescribed Doxepin 50 mg po HS along with Benadryl 50 mg po HS. Since he was still complaining of insomnia, he was later seen by Dr Patton who substituted Trazadone 100 mg po HS for Doxepin. Told radio script writer that he is still not sleeping well. Reports feeling depressed as well. Physical/Sexual Abuse/Trauma History: Denies history of verbal, physical or sexual abuse. Additional Comment: Denies criminal history Allergies/Adverse Reactions: Allergies Allergy/AdvReac Type Severity Reaction Status Date / Time No Known Drug Allergies Allergy Verified 03/07/17 15:00 Date of last physical exam: 03/07/17 Concur with the findings of this exam: Yes - Substance Abuse/Tx History Hx Alcohol Use: No Hx Substance Use: Yes Substance Use Type: Marijuana (Started smoking marijuana at age 33, consumes $ 10 worth daily. Last smoked on 03/06/17), Tranquilizers (Started using xanax at age 52, consumes 6 mg daily. Last used on 03/06/17) Hx Substance Use Treatment: Yes (3 previous inpt detox admissions @ [facility]) Mental Status Exam - Mental Status Exam Alert and Oriented to: Time, Place, Person Cognitive Function: Fair Patient Appearance: Well Groomed Mood: Depressed Affect: Constricted Patient Behavior: Cooperative Speech Pattern: Clear Voice Loudness: Normal Thought Process: Intact, Goal Oriented Thought Disorder: Not Present Hallucinations: Denies Suicidal Ideation: Denies Homicidal Ideation: Denies Insight/Judgement: Fair Sleep: Poorly Appetite: Fair Muscle strength/Tone: Normal Psychiatric Findings - Problem List (Golf 1, 2,3) (1) Sedative hypnotic or anxiolytic dependence Current Visit: No Status: Acute (2) Cannabis dependence Current Visit: Yes Status: Acute (3) Depressive disorder Current Visit: No Status: Chronic (4) Psychoactive substance-induced mood disorder Current Visit: Yes Status: Ruled-out (5) Substance-induced sleep disorder Current Visit: Yes Status: Acute (6) DM Diabetes mellitus type 2 Current Visit: Yes Status: Chronic (7) Essential hypertension Current Visit: Yes Status: Chronic (8) Hemiparesis due to old cerebrovascular accident Current Visit: Yes Status: Chronic (9) Hypercholesterolemia Current Visit: Yes Status: Chronic - Initial Treatment Plan Initial Treatment Plan: 1) Continue Trazadone 100 mg po HS. 2) Monitor progress
[2017-03-11 15:43] VITALS: BMI 34.1
[2017-03-11] MEDS: hydrOXYzine PAMOATE 50 MG CAPSULE (FP) PO PRN ×2 (18:10→22:25)
[2017-03-11] MEDS: THIAMINE HCL 100 MG TABLET (FP) PO SCH (21:23)
[2017-03-11] MEDS: traZODone HCL 100 MG TABLET (FP) PO SCH (21:23)
[2017-03-11] MEDS: ATORVASTATIN CA 40 MG TABLET (FP) PO SCH (21:23)
[2017-03-12] MEDS ORDERED: diphenhydrAMINE HCL 50 MG CAPSULE PO ONE (00:22)
[2017-03-12] MEDS ORDERED: diphenhydrAMINE HCL 25 MG CAPSULE (FP) PO ONE (00:27)
[2017-03-12] MEDS: hydrOXYzine PAMOATE 50 MG CAPSULE (FP) PO PRN ×5 (03:45→23:35)
[2017-03-12] MEDS ORDERED: NEBIVOLOL 5 MG TABLET (FP) PO SCH (10:00)
[2017-03-12] MEDS: PRENATAL VITAMINS W/ FOLIC ACID TABLET (FP) PO SCH (10:03)
[2017-03-12] MEDS: ASPIRIN 81 MG CHEWABLE TABLETS PO SCH (10:03)
[2017-03-12] MEDS: BACLOFEN 10 MG TABLET (FP) PO SCH (10:03)
[2017-03-12] MEDS: NEBIVOLOL 10 MG TABLET (FP) PO SCH (10:04)
[2017-03-12] MEDS: traZODone HCL 100 MG TABLET (FP) PO SCH (21:46)
[2017-03-12] MEDS: THIAMINE HCL 100 MG TABLET (FP) PO SCH (21:46)
[2017-03-12] MEDS: ATORVASTATIN CA 40 MG TABLET (FP) PO SCH (21:46)
[2017-03-13] MEDS: hydrOXYzine PAMOATE 50 MG CAPSULE (FP) PO PRN ×3 (06:46→20:08)
[2017-03-13] MEDS: NEBIVOLOL 10 MG TABLET (FP) PO SCH (09:44)
[2017-03-13] MEDS: ASPIRIN 81 MG CHEWABLE TABLETS PO SCH (09:44)
[2017-03-13] MEDS: PRENATAL VITAMINS W/ FOLIC ACID TABLET (FP) PO SCH (09:44)
[2017-03-13] MEDS: BACLOFEN 10 MG TABLET (FP) PO SCH (09:44)
--- NOTE | 2017-03-13 11:46 | PN ---
Psychiatric Progress Note Vital Signs: Vital Signs Period Temp Pulse Resp BP Sys/Arita Pulse Ox Last 24 Hr 97.2 F-98.3 F 78-87 18-18 152-159/69-76 Date of Session: 03/13/17 Chief Complaint:: Insomnia HPI: Patient addressing Sedative, Hypnotic or Anxiolytic and Cannabis Dependence comorbid with Depressive Disorder, Substance-Induced Mood Disorder and Substance-Induced Sleep Disorder ROS: HTN, HLD, tyope 2 DM, Old CVA with right hemiparesis Current Medications: Active Medications Generic Name Dose Route Start Last Admin Trade Name Freq PRN Reason Stop Dose Admin Acetaminophen 650 mg 03/11/17 13:08 Tylenol - PO Q4H PRN FEVER OR PAIN Al Hydroxide/Mg Hydroxide 30 ml 03/11/17 13:08 Mylanta Oral Suspension - PO Q6H PRN DYSPEPSIA Amitriptyline HCl 100 mg 03/13/17 11:45 Elavil - PO HS STEFANIA Aspirin 81 mg 03/12/17 10:00 03/13/17 09:44 Asa - PO 81 mg DAILY STEFANIA Administration Atorvastatin Calcium 40 mg 03/11/17 22:00 03/12/17 21:46 Lipitor - PO 40 mg HS STEFANIA Administration Baclofen 20 mg 03/12/17 10:00 03/13/17 09:44 Lioresal - PO Not Given DAILY STEFANIA Eucalyptus/Menthol/Phenol/Sorbitol 1 each 03/11/17 13:08 Cepastat Lozenge - MM Q4H PRN SORE THROAT Guaifenesin 10 ml 03/11/17 13:08 Robitussin Dm - PO Q6H PRN COUGH Hydroxyzine Pamoate 50 mg 03/11/17 13:08 03/13/17 06:46 Vistaril - PO 50 mg Q4H PRN Administration AGITATION Ibuprofen 400 mg 03/11/17 13:08 03/12/17 13:08 Motrin - PO 400 mg Q6H PRN Administration PAIN Loperamide HCl 4 mg 03/11/17 13:08 Imodium - PO Q6H PRN DIARRHEA Magnesium Citrate 300 ml 03/11/17 13:08 Citroma - PO Q48H PRN CONSTIPATION Magnesium Hydroxide 30 ml 03/11/17 13:08 Milk Of Magnesia - PO DAILY PRN CONSTIPATION Nebivolol 20 mg 03/12/17 10:00 03/13/17 09:44 Bystolic - PO 20 mg DAILY STEFANIA Administration Multivit/Folic Acid/Iron 1 tab 03/12/17 10:00 03/13/17 09:44 Vitamins (Sjr) - PO 1 tab DAILY STEFANIA Administration Pseudoephedrine/Triprolidine 1 combo 03/11/17 13:08 Actifed - PO TID PRN NASAL CONGESTION Thiamine HCl 100 mg 03/11/17 22:00 03/12/17 21:46 Vitamin B1 - PO 100 mg HS STEFANIA Administration Trazodone HCl 150 mg 03/13/17 22:00 Desyrel - PO HS STEFANIA Medication(s) Change(s): 1) Start Amitryptiline 100 mg po HS and Belsomra 10 mg po HS prn for insomnia. 2) Monitor progress Current Side Effect: No Lab tests ordered: Yes Lab tests reviewed: Yes Provider note:: Patient experiencing difficulty to sleep. Told proposal lead writer that he has been sleeping poorly despite trial on several medications(Trazadone, Ambien , Doxepin etc). He is now on Trazadone 100 mg po HS and reports experiencing headache. Discussed starting him on a combination of Amitryptine 100 mg po HS and Belsomra 10 mg po HS as needed. Benefits vs Risks of these medications discussed with patient abd he agreed to try them. Total face to face time:: 25 Mental Status Exam - Mental Status Exam Alert and Oriented to: Time, Place, Person Cognitive Function: Fair Patient Appearance: Well Groomed Mood: Depressed, Anxious Affect: Constricted Patient Behavior: Cooperative Speech Pattern: Clear Voice Loudness: Normal Thought Process: Intact, Goal Oriented Thought Disorder: Not Present Hallucinations: Denies Suicidal Ideation: Denies Homicidal Ideation: Denies Insight/Judgement: Fair Sleep: Poorly Appetite: Good Muscle strength/Tone: Normal Gait/Station: Normal Psychiatric Treatment Plan - Problem List (1) Sedative hypnotic or anxiolytic dependence Current Visit: No (2) Cannabis dependence Current Visit: Yes (3) Depressive disorder Current Visit: No (4) Psychoactive substance-induced mood disorder Current Visit: Yes (5) Substance-induced sleep disorder Current Visit: Yes (6) DM Diabetes mellitus type 2 Current Visit: Yes (7) Essential hypertension Current Visit: Yes (8) Hemiparesis due to old cerebrovascular accident Current Visit: Yes (9) Hypercholesterolemia Current Visit: Yes Initial treatment plan: 1) Discontinue Trazadone 100 mg po HS. 2) Start Amitryptiline 100 mg po HS and Belsomra 10 mg po HS prn for insomnia. 3) Monitor progress
[2017-03-13] MEDS: METHOCARBAMOL 500 MG TABLET PO SCH ×2 (14:21→21:59)
[2017-03-13] MEDS: MAG HYDROX/AL HYDROX/SIMETH 30 ML UNIT-DOSE CUP PO PRN (20:08)
[2017-03-13] MEDS: THIAMINE HCL 100 MG TABLET (FP) PO SCH (21:59)
[2017-03-13] MEDS: ATORVASTATIN CA 40 MG TABLET (FP) PO SCH (21:59)
[2017-03-13] MEDS: AMITRIPTYLINE HCL 100 MG TABLET PO SCH (21:59)
[2017-03-13] MEDS: traZODone HCL 50 MG TABLET (FP) PO SCH (22:08)
[2017-03-14] MEDS: SUVOREXANT 10 MG TABLET PO PRN ×2 (00:07→23:52)
[2017-03-14] MEDS ORDERED: LACTULOSE 20 GM/30 ML UDC (FOR ORAL USE ONLY) PO ONE (06:22)
--- NOTE | 2017-03-14 06:26 | PN ---
[facility] Progress Note Note: constipation lactulose 20 grams po ordered per the request of patient
[2017-03-14] MEDS: ASPIRIN 81 MG CHEWABLE TABLETS PO SCH (09:35)
[2017-03-14] MEDS: METHOCARBAMOL 500 MG TABLET PO SCH ×2 (09:35→23:13)
[2017-03-14] MEDS: NEBIVOLOL 10 MG TABLET (FP) PO SCH (09:35)
[2017-03-14] MEDS: PRENATAL VITAMINS W/ FOLIC ACID TABLET (FP) PO SCH (09:35)
[2017-03-14] MEDS: hydrOXYzine PAMOATE 50 MG CAPSULE (FP) PO PRN ×2 (09:37→20:04)
[2017-03-14] MEDS: MAG HYDROX/AL HYDROX/SIMETH 30 ML UNIT-DOSE CUP PO PRN (20:05)
[2017-03-14] MEDS: AMITRIPTYLINE HCL 100 MG TABLET PO SCH (23:09)
[2017-03-14] MEDS: THIAMINE HCL 100 MG TABLET (FP) PO SCH (23:10)
[2017-03-14] MEDS: ATORVASTATIN CA 40 MG TABLET (FP) PO SCH (23:10)
[2017-03-14] MEDS: traZODone HCL 50 MG TABLET (FP) PO SCH (23:13)
[2017-03-14] MEDS ORDERED: LACTULOSE 20 GM/30 ML UDC (FOR ORAL USE ONLY) PO PRN (23:27)
[2017-03-15] MEDS: hydrOXYzine PAMOATE 50 MG CAPSULE (FP) PO PRN ×3 (06:18→23:10)
[2017-03-15] MEDS: ASPIRIN 81 MG CHEWABLE TABLETS PO SCH (09:43)
[2017-03-15] MEDS: METHOCARBAMOL 500 MG TABLET PO SCH ×2 (09:43→23:12)
[2017-03-15] MEDS: PRENATAL VITAMINS W/ FOLIC ACID TABLET (FP) PO SCH (09:43)
[2017-03-15] MEDS: NEBIVOLOL 10 MG TABLET (FP) PO SCH (09:43)
[2017-03-15] MEDS: THIAMINE HCL 100 MG TABLET (FP) PO SCH (23:10)
[2017-03-15] MEDS: ATORVASTATIN CA 40 MG TABLET (FP) PO SCH (23:10)
[2017-03-15] MEDS: traZODone HCL 50 MG TABLET (FP) PO SCH (23:11)
[2017-03-15] MEDS: AMITRIPTYLINE HCL 100 MG TABLET PO SCH (23:11)
[2017-03-15] MEDS: SUVOREXANT 10 MG TABLET PO PRN (23:12)
[2017-03-16] MEDS: LACTULOSE 20 GM/30 ML UDC (FOR ORAL USE ONLY) PO PRN (04:16)
[2017-03-16] MEDS: hydrOXYzine PAMOATE 50 MG CAPSULE (FP) PO PRN ×2 (06:40→14:42)
[2017-03-16] MEDS: NEBIVOLOL 10 MG TABLET (FP) PO SCH (09:54)
[2017-03-16] MEDS: PRENATAL VITAMINS W/ FOLIC ACID TABLET (FP) PO SCH (09:54)
[2017-03-16] MEDS: ASPIRIN 81 MG CHEWABLE TABLETS PO SCH (09:55)
[2017-03-16] MEDS: METHOCARBAMOL 500 MG TABLET PO SCH ×3 (09:55→22:29)
[2017-03-16] MEDS ORDERED: SUVOREXANT 10 MG TABLET PO PRN (22:00)
[2017-03-16] MEDS: THIAMINE HCL 100 MG TABLET (FP) PO SCH (22:25)
[2017-03-16] MEDS: traZODone HCL 50 MG TABLET (FP) PO SCH (22:25)
[2017-03-16] MEDS: AMITRIPTYLINE HCL 100 MG TABLET PO SCH (22:26)
[2017-03-16] MEDS: ATORVASTATIN CA 40 MG TABLET (FP) PO SCH (22:26)
[2017-03-16] MEDS: SUVOREXANT 10 MG TABLET PO PRN (22:29)
[2017-03-17] MEDS: hydrOXYzine PAMOATE 50 MG CAPSULE (FP) PO PRN ×2 (07:28→17:10)
[2017-03-17] MEDS: METHOCARBAMOL 500 MG TABLET PO SCH ×2 (09:39→21:58)
[2017-03-17] MEDS: ASPIRIN 81 MG CHEWABLE TABLETS PO SCH (09:39)
[2017-03-17] MEDS: PRENATAL VITAMINS W/ FOLIC ACID TABLET (FP) PO SCH (09:39)
[2017-03-17] MEDS: NEBIVOLOL 10 MG TABLET (FP) PO SCH (09:40)
[2017-03-17] MEDS: THIAMINE HCL 100 MG TABLET (FP) PO SCH (21:56)
[2017-03-17] MEDS: IBUPROFEN 400 MG TABLET (FP) PO PRN (21:56)
[2017-03-17] MEDS: ATORVASTATIN CA 40 MG TABLET (FP) PO SCH (21:57)
[2017-03-17] MEDS: AMITRIPTYLINE HCL 100 MG TABLET PO SCH (21:57)
[2017-03-17] MEDS: SUVOREXANT 10 MG TABLET PO PRN (21:57)
[2017-03-17] MEDS: traZODone HCL 50 MG TABLET (FP) PO SCH (22:12)
[2017-03-18] MEDS: hydrOXYzine PAMOATE 50 MG CAPSULE (FP) PO PRN ×2 (06:55→21:34)
[2017-03-18] MEDS: PRENATAL VITAMINS W/ FOLIC ACID TABLET (FP) PO SCH (09:06)
[2017-03-18] MEDS: ASPIRIN 81 MG CHEWABLE TABLETS PO SCH (09:06)
[2017-03-18] MEDS: NEBIVOLOL 10 MG TABLET (FP) PO SCH (09:06)
[2017-03-18] MEDS: METHOCARBAMOL 500 MG TABLET PO SCH ×2 (09:06→21:35)
[2017-03-18] MEDS: LACTULOSE 20 GM/30 ML UDC (FOR ORAL USE ONLY) PO PRN (11:48)
[2017-03-18] MEDS: IBUPROFEN 400 MG TABLET (FP) PO PRN (21:35)
[2017-03-18] MEDS: SUVOREXANT 10 MG TABLET PO PRN (21:36)
[2017-03-18] MEDS: AMITRIPTYLINE HCL 100 MG TABLET PO SCH (21:36)
[2017-03-18] MEDS: traZODone HCL 50 MG TABLET (FP) PO SCH (21:36)
[2017-03-18] MEDS: ATORVASTATIN CA 40 MG TABLET (FP) PO SCH (21:36)
[2017-03-18] MEDS: THIAMINE HCL 100 MG TABLET (FP) PO SCH (21:37)
[2017-03-19] MEDS: NEBIVOLOL 10 MG TABLET (FP) PO SCH (09:39)
[2017-03-19] MEDS: METHOCARBAMOL 500 MG TABLET PO SCH ×2 (09:39→22:31)
[2017-03-19] MEDS: hydrOXYzine PAMOATE 50 MG CAPSULE (FP) PO PRN ×3 (09:39→22:28)
[2017-03-19] MEDS: ASPIRIN 81 MG CHEWABLE TABLETS PO SCH (09:39)
[2017-03-19] MEDS: PRENATAL VITAMINS W/ FOLIC ACID TABLET (FP) PO SCH (09:39)
[2017-03-19] MEDS: IBUPROFEN 400 MG TABLET (FP) PO PRN (12:43)
[2017-03-19] MEDS: ATORVASTATIN CA 40 MG TABLET (FP) PO SCH (22:28)
[2017-03-19] MEDS: AMITRIPTYLINE HCL 100 MG TABLET PO SCH (22:28)
[2017-03-19] MEDS: THIAMINE HCL 100 MG TABLET (FP) PO SCH (22:28)
[2017-03-19] MEDS: traZODone HCL 50 MG TABLET (FP) PO SCH (22:30)
[2017-03-19] MEDS: SUVOREXANT 10 MG TABLET PO PRN (22:33)
[2017-03-20] MEDS ORDERED: PT OWN MED DRAWER 7, Y5N ONE (09:02)
[2017-03-20] MEDS: METHOCARBAMOL 500 MG TABLET PO SCH ×2 (09:49→21:31)
[2017-03-20] MEDS: PRENATAL VITAMINS W/ FOLIC ACID TABLET (FP) PO SCH (09:49)
[2017-03-20] MEDS: ASPIRIN 81 MG CHEWABLE TABLETS PO SCH (09:49)
[2017-03-20] MEDS: NEBIVOLOL 10 MG TABLET (FP) PO SCH (09:50)
[2017-03-20] MEDS: hydrOXYzine PAMOATE 50 MG CAPSULE (FP) PO PRN (09:51)
[2017-03-20] MEDS: AMITRIPTYLINE HCL 100 MG TABLET PO SCH (21:31)
[2017-03-20] MEDS: THIAMINE HCL 100 MG TABLET (FP) PO SCH (21:31)
[2017-03-20] MEDS: ATORVASTATIN CA 40 MG TABLET (FP) PO SCH (21:31)
[2017-03-20] MEDS: SUVOREXANT 10 MG TABLET PO PRN (21:32)
[2017-03-20] MEDS: traZODone HCL 50 MG TABLET (FP) PO SCH (21:33)
[2017-03-21] MEDS: hydrOXYzine PAMOATE 50 MG CAPSULE (FP) PO PRN ×2 (06:11→09:41)
[2017-03-21] MEDS: ASPIRIN 81 MG CHEWABLE TABLETS PO SCH (09:41)
[2017-03-21] MEDS: IBUPROFEN 400 MG TABLET (FP) PO PRN (09:41)
[2017-03-21] MEDS: PRENATAL VITAMINS W/ FOLIC ACID TABLET (FP) PO SCH (09:41)
[2017-03-21] MEDS: METHOCARBAMOL 500 MG TABLET PO SCH ×2 (09:41→22:06)
[2017-03-21] MEDS: NEBIVOLOL 10 MG TABLET (FP) PO SCH (10:51)
[2017-03-21] MEDS: THIAMINE HCL 100 MG TABLET (FP) PO SCH (22:02)
[2017-03-21] MEDS: ATORVASTATIN CA 40 MG TABLET (FP) PO SCH (22:02)
[2017-03-21] MEDS: SUVOREXANT 10 MG TABLET PO PRN (22:03)
[2017-03-21] MEDS: AMITRIPTYLINE HCL 100 MG TABLET PO SCH (22:03)
[2017-03-21] MEDS: traZODone HCL 50 MG TABLET (FP) PO SCH (22:05)
[2017-03-22] MEDS ORDERED: SUVOREXANT 10 MG TABLET PO PRN (08:27)
[2017-03-22] MEDS: PRENATAL VITAMINS W/ FOLIC ACID TABLET (FP) PO SCH (09:43)
[2017-03-22] MEDS: NEBIVOLOL 10 MG TABLET (FP) PO SCH (09:43)
[2017-03-22] MEDS: ASPIRIN 81 MG CHEWABLE TABLETS PO SCH (09:43)
[2017-03-22] MEDS: hydrOXYzine PAMOATE 50 MG CAPSULE (FP) PO PRN (09:44)
[2017-03-22] MEDS: METHOCARBAMOL 500 MG TABLET PO SCH ×2 (10:11→21:56)
[2017-03-22] MEDS ORDERED: diphenhydrAMINE HCL 25 MG CAPSULE (FP) PO PRN (14:47)
--- NOTE | 2017-03-22 14:55 | PN ---
Psychiatric Progress Note Vital Signs: Vital Signs Period Temp Pulse Resp BP Sys/Arita Pulse Ox Last 24 Hr 98.4 F 97-103 20-20 155-160/85-90 Date of Session: 03/22/17 Chief Complaint:: Insomnia HPI: Patient addressing Sedative, Hypnotic or Anxiolytic and Cannabis Dependence comorbid with Depressive Disorder, Substance-Induced Mood ROS: HTN, HLD, tyope 2 DM, Old CVA with right hemiparesis Current Medications: Active Medications Generic Name Dose Route Start Last Admin Trade Name Freq PRN Reason Stop Dose Admin Acetaminophen 650 mg 03/11/17 13:08 03/14/17 23:12 Tylenol - PO 650 mg Q4H PRN Administration FEVER OR PAIN Al Hydroxide/Mg Hydroxide 30 ml 03/11/17 13:08 03/14/17 20:05 Mylanta Oral Suspension - PO 30 ml Q6H PRN Administration DYSPEPSIA Aspirin 81 mg 03/12/17 10:00 03/22/17 09:43 Asa - PO 81 mg DAILY STEFANIA Administration Atorvastatin Calcium 40 mg 03/11/17 22:00 03/21/17 22:02 Lipitor - PO 40 mg HS STEFANIA Administration Diphenhydramine HCl 100 mg 03/22/17 14:47 Benadryl - PO HS PRN INSOMNIA Eucalyptus/Menthol/Phenol/Sorbitol 1 each 03/11/17 13:08 Cepastat Lozenge - MM Q4H PRN SORE THROAT Guaifenesin 10 ml 03/11/17 13:08 Robitussin Dm - PO Q6H PRN COUGH Hydroxyzine Pamoate 50 mg 03/11/17 13:08 03/22/17 09:44 Vistaril - PO 50 mg Q4H PRN Administration AGITATION Ibuprofen 800 mg 03/13/17 12:21 03/21/17 09:41 Motrin - PO 800 mg Q6H PRN Administration PAIN Lactulose 20 gm 03/14/17 23:36 03/18/17 11:48 Cephulac (Oral Use) PO 20 gm Q8H PRN Administration CONSTIPATION Loperamide HCl 4 mg 03/11/17 13:08 Imodium - PO Q6H PRN DIARRHEA Magnesium Citrate 300 ml 03/11/17 13:08 Citroma - PO Q48H PRN CONSTIPATION Magnesium Hydroxide 30 ml 03/11/17 13:08 Milk Of Magnesia - PO DAILY PRN CONSTIPATION Methocarbamol 500 mg 03/13/17 12:30 03/22/17 10:11 Robaxin - PO Not Given BID STEFANIA Nebivolol 20 mg 03/12/17 10:00 03/22/17 09:43 Bystolic - PO 20 mg DAILY STEFANIA Administration Multivit/Folic Acid/Iron 1 tab 03/12/17 10:00 03/22/17 09:43 Vitamins (Sjr) - PO 1 tab DAILY STEFANIA Administration Pseudoephedrine/Triprolidine 1 combo 03/11/17 13:08 Actifed - PO TID PRN NASAL CONGESTION Quetiapine Fumarate 100 mg 03/22/17 22:00 Seroquel - PO HS STEFANIA Thiamine HCl 100 mg 03/11/17 22:00 03/21/17 22:02 Vitamin B1 - PO 100 mg HS STEFANIA Administration Current Side Effect: No Lab tests ordered: Yes Lab tests reviewed: Yes Provider note:: Patient continues to complain of difficulty to sleep. Told typewriter operator automatic that for the past 2 days, he has been sleeping very poorly despite taking Elavil 100 mg + Trazadone 100 mg + Belsomra 10 mg prn. Requests to try Seroquel and Benadryl Total face to face time:: 25 Mental Status Exam - Mental Status Exam Alert and Oriented to: Time, Place, Person Cognitive Function: Fair Patient Appearance: Well Groomed Mood: Anxious, Euthymic Affect: Appropriate, Mood Congruent Patient Behavior: Cooperative Speech Pattern: Clear Voice Loudness: Normal, Excessive Variation Thought Process: Intact, Goal Oriented Hallucinations: Denies Suicidal Ideation: Denies Homicidal Ideation: Denies Insight/Judgement: Fair Sleep: Poorly Appetite: Good Muscle strength/Tone: Normal Gait/Station: Normal Psychiatric Treatment Plan - Problem List (1) Sedative hypnotic or anxiolytic dependence Current Visit: No (2) Cannabis dependence Current Visit: Yes (3) Depressive disorder Current Visit: No (4) Psychoactive substance-induced mood disorder Current Visit: Yes (5) Substance-induced sleep disorder Current Visit: Yes (6) DM Diabetes mellitus type 2 Current Visit: Yes (7) Essential hypertension Current Visit: Yes (8) Hemiparesis due to old cerebrovascular accident Current Visit: Yes (9) Hypercholesterolemia Current Visit: Yes Initial treatment plan: 1) Discontinue Elavil and Trazadone. 2) Start Seroquel 100 mg po HS and Benadryl 100 mg po HS. 3) Monitor progress
[2017-03-22] MEDS: THIAMINE HCL 100 MG TABLET (FP) PO SCH (21:55)
[2017-03-22] MEDS: ATORVASTATIN CA 40 MG TABLET (FP) PO SCH (21:56)
[2017-03-22] MEDS: SUVOREXANT 10 MG TABLET PO PRN (21:57)
[2017-03-22] MEDS ORDERED: QUEtiapine FUMARATE 100 MG TABLET (FP) PO SCH (22:00)
[2017-03-23] MEDS: hydrOXYzine PAMOATE 50 MG CAPSULE (FP) PO PRN ×2 (01:22→09:44)
[2017-03-23 06:58] VITALS: TEMP 97.6
[2017-03-23] MEDS: NEBIVOLOL 10 MG TABLET (FP) PO SCH (09:44)
[2017-03-23] MEDS: ASPIRIN 81 MG CHEWABLE TABLETS PO SCH (09:44)
[2017-03-23] MEDS: PRENATAL VITAMINS W/ FOLIC ACID TABLET (FP) PO SCH (09:44)
[2017-03-23] MEDS: METHOCARBAMOL 500 MG TABLET PO SCH ×2 (10:10→22:19)
[2017-03-23] MEDS ORDERED: BUPRENORPHINE/NALOXONE 2 MG/0.5 MG FILM PACKET SL SCH (10:45)
--- NOTE | 2017-03-23 10:46 | PN ---
[facility] Progress Note (SOAP) Subjective: Fiona c/o chronic back pain 2/2 trauma, insomnia, was on opioid pain medication and bexodiazepines prior o admission, Would like to have pain management and start suboxone for pain an d oipoid use disorder today. Has had it inthe past and was effective 02/12/2017 02/12/2017 oxycodone hcl 30 mg tablet 150 30 Bar, Cirilo PAYAN 02/12/2017 02/12/2017 dextroamp-amphetamin 30 mg tab 60 30 Bar, Cirilo PAYAN 02/12/2017 02/12/2017 alprazolam 2 mg tablet 60 30 Bar, Cirilo PAYAN 01/07/2017 01/10/2017 oxycodone hcl 30 mg tablet 150 30 Bar, Cirilo PAYAN 01/07/2017 01/10/2017 dextroamp-amphetamin 30 mg tab 60 30 Bar, Cirilo PAYAN 01/07/2017 01/10/2017 alprazolam 2 mg tablet 60 30 Bar, Cirilo PAYAN 12/11/2016 12/11/2016 oxycodone hcl 30 mg tablet 150 30 Bar, Cirilo PAYAN 12/11/2016 12/11/2016 dextroamp-amphetamin 30 mg tab 60 30 Bar, Cirilo PAYAN 12/11/2016 12/11/2016 alprazolam 1 mg tablet 90 30 Bar, Cirilo PAYAN 11/03/2016 11/03/2016 dextroamp-amphetamin 30 mg tab 60 30 Bar, Cirilo PAYAN 11/03/2016 11/03/2016 oxycodone hcl 30 mg tablet 150 30 Bar, Cirilo PAYAN 11/03/2016 11/03/2016 alprazolam 1 mg tablet 90 30 Bar, Cirilo PAYAN 10/02/2016 10/04/2016 dextroamp-amphetamin 30 mg tab 60 30 Bar, Cirilo PAYAN 10/02/2016 10/04/2016 oxycodone hcl 30 mg tablet 150 30 Bar, Cirilo PAYAN 10/02/2016 10/04/2016 alprazolam 1 mg tablet 90 30 Bar, Cirilo PAYAN 09/04/2016 09/04/2016 dextroamp-amphetamin 30 mg tab 60 30 Bar, Cirilo PAYAN 09/04/2016 09/04/2016 oxycodone hcl 30 mg tablet 150 30 Bar, Cirilo PAYAN 09/04/2016 09/04/2016 alprazolam 1 mg tablet 90 30 Bar, Cirilo PAYAN 08/05/2016 08/05/2016 oxycodone hcl 30 mg tablet 150 30 Bar, Cirilo PAYAN 08/05/2016 08/05/2016 dextroamp-amphetamin 30 mg tab 60 30 Bar, Cirilo PAYAN 08/05/2016 08/05/2016 alprazolam 1 mg tablet 90 30 Bar, Cirilo PAYAN 07/03/2016 07/04/2016 dextroamp-amphetamin 30 mg tab 60 30 Bar, Cirilo PAYAN 07/03/2016 07/04/2016 oxycodone hcl 30 mg tablet 150 30 Bar, Cirilo PAYAN Patient Name: Anson Haynes Date: 1960 Address: [address] [place] [address] Sex: Male Rx Written Rx Dispensed Drug Quantity Days Supply Prescriber Name 06/18/2016 02/05/2017 blue 9.14mg thc and less than 0.5mg cbd/2ml sl tincture 30ml 5 Gelacio Jones 06/18/2016 02/05/2017 blue vape 9.5 mg thc and less than 0.5 mg cbd per 0.04 ml 1 7 Gelacio Jones 06/18/2016 02/05/2017 blue vape 9.5 mg thc and less than 0.5 mg cbd per 0.04 ml 2 14 Gelacio Jones Objective: 03/23/17 10:45 Vital Signs - 24 hr 03/23/17 03/23/17 03/23/17 00:30 03:30 06:57 Temperature 97.6 F Pulse Rate 83 Respiratory 18 20 20 Rate Blood Pressure 153/72 labs reviewed, NAD, a and o x3 Assessment: 03/23/17 10:45 chronic pain and substance use disorder, start suboxone bid in dividied dos3s for nikos management and and mat. flexeril, lidoderm patch neurontin and naprosyn ordered with protonix. ccan titirae dose up in dividied dose if tolerate d by patient.
[2017-03-23] MEDS: LIDOCAINE 5% TOPICAL PATCH TP SCH (11:03)
[2017-03-23] MEDS: BUPRENORPHINE/NALOXONE 2 MG/0.5 MG FILM PACKET SL SCH ×2 (11:04→17:02)
[2017-03-23] MEDS: PANTOPRAZOLE 40 MG TABLET (FP) PO SCH (11:04)
[2017-03-23] MEDS: NAPROXEN 500 MG TABLET (FP) PO SCH ×2 (11:04→22:19)
[2017-03-23] MEDS: GABAPENTIN 100 MG CAPSULE (FP) PO SCH ×2 (14:27→22:19)
[2017-03-23] MEDS: CYCLOBENZAPRINE HCL 10 MG TABLET (FP) PO SCH ×2 (14:27→22:19)
--- NOTE | 2017-03-23 14:45 | PN ---
Psychiatric Progress Note Vital Signs: Vital Signs Period Temp Pulse Resp BP Sys/Arita Pulse Ox Last 24 Hr 97.6 F 81-83 18-20 153-155/72-78 Date of Session: 03/23/17 Chief Complaint:: " I want my trazodone back.Seroquel gives me too many side effects." HPI: Asked to see this patient for complaints of refractory insomnia and his request for medication changes. ROS: Ambulatory with cane.Visible on the unit.Well groomed.Doing fine except for complaint of insomnia. Current Medications: Active Medications Generic Name Dose Route Start Last Admin Trade Name Freq PRN Reason Stop Dose Admin Acetaminophen 650 mg 03/11/17 13:08 03/14/17 23:12 Tylenol - PO 650 mg Q4H PRN Administration FEVER OR PAIN Al Hydroxide/Mg Hydroxide 30 ml 03/11/17 13:08 03/14/17 20:05 Mylanta Oral Suspension - PO 30 ml Q6H PRN Administration DYSPEPSIA Aspirin 81 mg 03/12/17 10:00 03/23/17 09:44 Asa - PO 81 mg DAILY STEFANIA Administration Atorvastatin Calcium 40 mg 03/11/17 22:00 03/22/17 21:56 Lipitor - PO 40 mg HS STEFANIA Administration Buprenorphine/Naloxone 1 each 03/23/17 10:55 03/23/17 11:04 Suboxone 2mg/0.5mg Sl Film - SL 03/30/17 10:54 1 each BID@1000,1800 STEFANIA Administration Cyclobenzaprine HCl 10 mg 03/23/17 14:00 03/23/17 14:27 Flexeril - PO 10 mg TID STEFANIA Administration Diphenhydramine HCl 100 mg 03/22/17 14:47 03/22/17 21:59 Benadryl - PO 100 mg HS PRN Administration INSOMNIA Eucalyptus/Menthol/Phenol/Sorbitol 1 each 03/11/17 13:08 Cepastat Lozenge - MM Q4H PRN SORE THROAT Gabapentin 100 mg 03/23/17 14:00 03/23/17 14:27 Neurontin - PO 100 mg TID STEFANIA Administration Guaifenesin 10 ml 03/11/17 13:08 Robitussin Dm - PO Q6H PRN COUGH Hydroxyzine Pamoate 50 mg 03/11/17 13:08 03/23/17 09:44 Vistaril - PO 50 mg Q4H PRN Administration AGITATION Lactulose 20 gm 03/14/17 23:36 03/18/17 11:48 Cephulac (Oral Use) PO 20 gm Q8H PRN Administration CONSTIPATION Lidocaine 1 patch 03/23/17 10:45 03/23/17 11:03 Lidoderm Patch - TP 1 patch DAILY STEFANIA Administration Loperamide HCl 4 mg 03/11/17 13:08 Imodium - PO Q6H PRN DIARRHEA Magnesium Citrate 300 ml 03/11/17 13:08 Citroma - PO Q48H PRN CONSTIPATION Magnesium Hydroxide 30 ml 03/11/17 13:08 Milk Of Magnesia - PO DAILY PRN CONSTIPATION Methocarbamol 500 mg 03/13/17 12:30 03/23/17 10:10 Robaxin - PO Not Given BID STEFANIA Miscellaneous 1 each 03/23/17 22:00 Lidoderm Patch Removal MC DAILY@2200 STEFANIA Naproxen 500 mg 03/23/17 10:45 03/23/17 11:04 Naprosyn - PO 500 mg BID STEFANIA Administration Nebivolol 20 mg 03/12/17 10:00 03/23/17 09:44 Bystolic - PO 20 mg DAILY STEFANIA Administration Pantoprazole Sodium 40 mg 03/23/17 11:00 03/23/17 11:04 Protonix - PO 40 mg DAILY STEFANIA Administration Multivit/Folic Acid/Iron 1 tab 03/12/17 10:00 03/23/17 09:44 Vitamins (Sjr) - PO 1 tab DAILY STEFANIA Administration Pseudoephedrine/Triprolidine 1 combo 03/11/17 13:08 Actifed - PO TID PRN NASAL CONGESTION Quetiapine Fumarate 100 mg 03/22/17 22:00 03/22/17 21:56 Seroquel - PO 100 mg HS STEFANIA Administration Thiamine HCl 100 mg 03/11/17 22:00 03/22/17 21:55 Vitamin B1 - PO 100 mg HS STEFANIA Administration Medication(s) Change(s): " I don't want seroquel.It makes me feel drowzy, unsteady in the morning.I want to get my trazodone back." Sleep hygiene/choices of hypnotic drugs are discussed with patient.Trazodone 100 mg po hs .Ordered.Patient is made aware of potential for priapism.Agrees with careplan. Current Side Effect: Yes (see Medications changes section for details.) Lab tests ordered: No Lab tests reviewed: Yes Provider note:: Chart reviewed.Patient is already known to this manual writer. Total face to face time:: 25 Mental Status Exam - Mental Status Exam Alert and Oriented to: Time, Place, Person Cognitive Function: Grossly Intact Patient Appearance: Well Groomed Mood: Hopeful, Euthymic Affect: Appropriate, Normal Range Patient Behavior: Appropriate, Cooperative Speech Pattern: Clear, Appropriate Voice Loudness: Normal Thought Process: Goal Oriented Thought Disorder: Not Present Hallucinations: Denies Suicidal Ideation: Denies Homicidal Ideation: Denies Insight/Judgement: Fair Sleep: Poorly, Difficulty falling asleep Appetite: Good Gait/Station: Other (walks with a cane) Psychiatric Treatment Plan - Problem List (1) Sedative hypnotic or anxiolytic dependence Current Visit: Yes (2) Cannabis dependence Current Visit: Yes (3) Substance-induced sleep disorder Current Visit: Yes (4) Depressive disorder Current Visit: Yes (5) Substance induced mood disorder Current Visit: Yes (6) DM Diabetes mellitus type 2 Current Visit: Yes (7) Essential hypertension Current Visit: Yes (8) Hemiparesis due to old cerebrovascular accident Current Visit: Yes (9) Hypercholesterolemia Current Visit: Yes (10) Use of cane as ambulatory aid Current Visit: Yes
[2017-03-23] MEDS: THIAMINE HCL 100 MG TABLET (FP) PO SCH (22:19)
[2017-03-23] MEDS: ATORVASTATIN CA 40 MG TABLET (FP) PO SCH (22:19)
[2017-03-23] MEDS: traZODone HCL 100 MG TABLET (FP) PO SCH (22:19)
[2017-03-23] MEDS: LIDOCAINE PATCH REMOVAL MC SCH (22:20)
[2017-03-23] MEDS: diphenhydrAMINE HCL 50 MG CAPSULE PO PRN (23:00)
[2017-03-24] MEDS: GABAPENTIN 100 MG CAPSULE (FP) PO SCH ×2 (05:56→13:13)
[2017-03-24] MEDS: CYCLOBENZAPRINE HCL 10 MG TABLET (FP) PO SCH ×3 (05:56→21:56)
[2017-03-24] MEDS: NAPROXEN 500 MG TABLET (FP) PO SCH (09:54)
[2017-03-24] MEDS: ASPIRIN 81 MG CHEWABLE TABLETS PO SCH (09:54)
[2017-03-24] MEDS: NEBIVOLOL 10 MG TABLET (FP) PO SCH (09:54)
[2017-03-24] MEDS: PRENATAL VITAMINS W/ FOLIC ACID TABLET (FP) PO SCH (09:54)
[2017-03-24] MEDS: LIDOCAINE 5% TOPICAL PATCH TP SCH (09:55)
[2017-03-24] MEDS: PANTOPRAZOLE 40 MG TABLET (FP) PO SCH (09:55)
[2017-03-24] MEDS: BUPRENORPHINE/NALOXONE 2 MG/0.5 MG FILM PACKET SL SCH (09:56)
[2017-03-24] MEDS: METHOCARBAMOL 500 MG TABLET PO SCH (09:56)
[2017-03-24] MEDS: LACTULOSE 20 GM/30 ML UDC (FOR ORAL USE ONLY) PO PRN (13:13)
--- NOTE | 2017-03-24 13:16 | PN ---
Psychiatric Progress Note Vital Signs: Vital Signs Period Temp Pulse Resp BP Sys/Arita Pulse Ox Last 24 Hr 97.6 F 90-96 18-18 137-144/67-80 Date of Session: 03/24/17 Chief Complaint:: discharge visit HPI: Patient is addressing sedative-hypnotic, cannabis dependence comorbid substance induced sleep, mood disorder and depressive disorder. ROS: HTN, HLD, type 2 DM, Old CVA with right hemiparesis Current Medications: Active Medications Generic Name Dose Route Start Last Admin Trade Name Freq PRN Reason Stop Dose Admin Acetaminophen 650 mg 03/11/17 13:08 03/14/17 23:12 Tylenol - PO 650 mg Q4H PRN Administration FEVER OR PAIN Al Hydroxide/Mg Hydroxide 30 ml 03/11/17 13:08 03/14/17 20:05 Mylanta Oral Suspension - PO 30 ml Q6H PRN Administration DYSPEPSIA Aspirin 81 mg 03/12/17 10:00 03/24/17 09:54 Asa - PO 81 mg DAILY STEFANIA Administration Atorvastatin Calcium 40 mg 03/11/17 22:00 03/23/17 22:19 Lipitor - PO 40 mg HS STEFANIA Administration Buprenorphine/Naloxone 1 each 03/23/17 10:55 03/24/17 09:56 Suboxone 2mg/0.5mg Sl Film - SL 03/30/17 10:54 1 each BID@1000,1800 STEFANIA Administration Cyclobenzaprine HCl 10 mg 03/23/17 14:00 03/24/17 05:56 Flexeril - PO 10 mg TID STEFANIA Administration Diphenhydramine HCl 100 mg 03/23/17 22:57 03/23/17 23:00 Benadryl - PO 100 mg HS PRN Administration INSOMNIA Eucalyptus/Menthol/Phenol/Sorbitol 1 each 03/11/17 13:08 Cepastat Lozenge - MM Q4H PRN SORE THROAT Gabapentin 100 mg 03/23/17 14:00 03/24/17 05:56 Neurontin - PO 100 mg TID STEFANIA Administration Guaifenesin 10 ml 03/11/17 13:08 Robitussin Dm - PO Q6H PRN COUGH Hydroxyzine Pamoate 50 mg 03/11/17 13:08 03/23/17 09:44 Vistaril - PO 50 mg Q4H PRN Administration AGITATION Lactulose 20 gm 03/14/17 23:36 03/18/17 11:48 Cephulac (Oral Use) PO 20 gm Q8H PRN Administration CONSTIPATION Lidocaine 1 patch 03/23/17 10:45 03/24/17 09:55 Lidoderm Patch - TP 1 patch DAILY STEFANIA Administration Loperamide HCl 4 mg 03/11/17 13:08 Imodium - PO Q6H PRN DIARRHEA Magnesium Citrate 300 ml 03/11/17 13:08 Citroma - PO Q48H PRN CONSTIPATION Magnesium Hydroxide 30 ml 03/11/17 13:08 Milk Of Magnesia - PO DAILY PRN CONSTIPATION Methocarbamol 500 mg 03/13/17 12:30 03/24/17 09:56 Robaxin - PO Not Given BID STEFANIA Miscellaneous 1 each 03/23/17 22:00 03/23/17 22:20 Lidoderm Patch Removal MC 1 each DAILY@2200 STEFANIA Administration Naproxen 500 mg 03/23/17 10:45 03/24/17 09:54 Naprosyn - PO 500 mg BID STEFANIA Administration Nebivolol 20 mg 03/12/17 10:00 03/24/17 09:54 Bystolic - PO 20 mg DAILY STEFANIA Administration Pantoprazole Sodium 40 mg 03/23/17 11:00 03/24/17 09:55 Protonix - PO 40 mg DAILY STEFANIA Administration Multivit/Folic Acid/Iron 1 tab 03/12/17 10:00 03/24/17 09:54 Vitamins (Sjr) - PO 1 tab DAILY STEFANIA Administration Pseudoephedrine/Triprolidine 1 combo 03/11/17 13:08 Actifed - PO TID PRN NASAL CONGESTION Thiamine HCl 100 mg 03/11/17 22:00 03/23/17 22:19 Vitamin B1 - PO 100 mg HS STEFANIA Administration Trazodone HCl 100 mg 03/23/17 22:00 03/23/17 22:19 Desyrel - PO 100 mg HS STEFANIA Administration Current Side Effect: No Lab tests ordered: No Lab tests reviewed: Yes Provider note:: Reviewed the chart, met with the patient, he will comtplete treatment and meet his goals on 03/25, will continue to address his issues at the next level of care. Patient verbalized his motivations to stay away from drugs,he understands the negative impact of his addiction over his life including physical and mental health. Patient reports that Trazodone well tolerated, no side-effects reported, he sleep better, scripts provided, patient was encouraged to f/u with his medical appointments and utilize all supports available to prevent relapses.Patient is stable for discharge. Total face to face time:: 35 Mental Status Exam - Mental Status Exam Alert and Oriented to: Time, Place, Person Cognitive Function: Grossly Intact Patient Appearance: Well Groomed Mood: Hopeful Affect: Appropriate, Mood Congruent Patient Behavior: Cooperative Speech Pattern: Clear, Appropriate Voice Loudness: Normal Thought Process: Intact, Goal Oriented Thought Disorder: Not Present Hallucinations: Denies Suicidal Ideation: Denies Homicidal Ideation: Denies Insight/Judgement: Fair Sleep: Fair Appetite: Fair Muscle strength/Tone: Normal Gait/Station: Other Psychiatric Treatment Plan - Problem List (1) Cannabis dependence Current Visit: Yes (2) Sedative hypnotic or anxiolytic dependence Current Visit: Yes (3) Substance induced mood disorder Current Visit: Yes (4) Substance-induced sleep disorder Current Visit: Yes (5) CVA (cerebral infarction) Current Visit: Yes Qualifiers: Laterality of affected vessel: right (6) Cannabis dependence Current Visit: Yes (7) DM Diabetes mellitus type 2 Current Visit: Yes (8) Depressive disorder Current Visit: Yes
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
[2017-03-24] MEDS ORDERED: BUPRENORPHINE/NALOXONE 2 MG/0.5 MG FILM PACKET SL ONE (15:10)
[2017-03-24] MEDS: GABAPENTIN 300 MG CAPSULE (FP) PO SCH ×2 (15:26→21:57)
[2017-03-24] MEDS: amLODIPine BESYLATE 10 MG TABLET (FP) PO SCH (15:26)
[2017-03-24] MEDS: ATORVASTATIN CA 40 MG TABLET (FP) PO SCH (21:56)
[2017-03-24] MEDS: traZODone HCL 100 MG TABLET (FP) PO SCH (21:57)
[2017-03-24] MEDS: THIAMINE HCL 100 MG TABLET (FP) PO SCH (21:57)
[2017-03-24] MEDS: diphenhydrAMINE HCL 50 MG CAPSULE PO PRN (21:58)
[2017-03-24] MEDS ORDERED: DOCUSATE SODIUM 100 MG CAPSULE (FP) PO SCH (22:00)
[2017-03-24] MEDS: LIDOCAINE PATCH REMOVAL MC SCH (22:00)
[2017-03-25] MEDS: GABAPENTIN 300 MG CAPSULE (FP) PO SCH (05:58)
[2017-03-25] MEDS: CYCLOBENZAPRINE HCL 10 MG TABLET (FP) PO SCH (05:58)
[2017-03-25 07:03] VITALS: BP 143/90; PULSE 82
[2017-03-25] MEDS: ASPIRIN 81 MG CHEWABLE TABLETS PO SCH (09:34)
[2017-03-25] MEDS: amLODIPine BESYLATE 10 MG TABLET (FP) PO SCH (09:34)
[2017-03-25] MEDS: PRENATAL VITAMINS W/ FOLIC ACID TABLET (FP) PO SCH (09:34)
[2017-03-25] MEDS: PANTOPRAZOLE 40 MG TABLET (FP) PO SCH (09:35)
[2017-03-25] MEDS: LIDOCAINE 5% TOPICAL PATCH TP SCH (09:35)
[2017-03-25] MEDS ORDERED: BUPRENORPHINE/NALOXONE 8 MG/2 MG FILM PACKET SL SCH (10:00)
[2017-03-25] MEDS ORDERED: HYDROCHLOROTHIAZIDE 12.5 MG CAPSULE (FP) PO SCH (10:00)
[2017-03-25] MEDS ORDERED: BUPRENORPHINE/NALOXONE 2 MG/0.5 MG FILM PACKET SL SCH (10:00)
== END 2017-03-25 09:52 | disposition home or self-care (01) | DRG 772 ==
LOC: YASAS 12:46 → Y3W 12:47
PROVIDERS: ADMIT Psychiatry & Neurology Psychiatry; ATTEND Psychiatry & Neurology Psychiatry
PROC: HZ42ZZZ Group Counseling for Substance Abuse Treatment, Cognitive-Behavioral (ICD-10-PCS; principal; 2017-03-11)
DX: F13.20 Sedative, hypnotic or anxiolytic dependence, uncomplicated (principal); F14.20 Cocaine dependence, uncomplicated; F12.20 Cannabis dependence, uncomplicated; F19.24 Other psychoactive substance dependence with psychoactive substance-induced mood disorder; F19.282 Other psychoactive substance dependence with psychoactive substance-induced sleep disorder; F31.9 Bipolar disorder, unspecified; F32.9 Major depressive disorder, single episode, unspecified; I10 Essential (primary) hypertension; E11.9 Type 2 diabetes mellitus without complications; E78.5 Hyperlipidemia, unspecified; I69.351 Hemiplegia and hemiparesis following cerebral infarction affecting right dominant side; M54.5 Low back pain; M54.2 Cervicalgia; G89.29 Other chronic pain; R26.2 Difficulty in walking, not elsewhere classified; Z99.89 Dependence on other enabling machines and devices; Z86.69 Personal history of other diseases of the nervous system and sense organs
CPT/HCPCS: J0475